=== PATIENT | female | born 2000 | race African-American/Black ===

== ENCOUNTER 2021-06-05 11:23 | Emergency (ER) | payer SELFPAY ==
[2021-06-05 11:35] VITALS: BP 117/71; PULSE 80; RESP 17; TEMP 36.4; O2SAT 99
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
[2021-06-05] MEDS: ACETAMINOPHEN 325 MG TABLET 975 MG PO (12:24)
[2021-06-05] MEDS: IBUPROFEN 400 MG TABLET 800 MG PO (12:24)
[2021-06-05] MEDS: DULOXETINE 30 MG CAPSULE 60 MG PO (12:25)
[2021-06-05] MEDS: COVID-19 VACC, Ad26(JANSSEN)/PF 0.5 ML IM (13:11)
[2021-06-05] MEDS: INFLUENZA VACCINE QIV 0.5 ML SYRINGE IM (13:12)
[2021-06-05 13:16] LABS: UR Morphine/Opiate cutoff 300 Negative (Negative); Ur Creatinine Normal (Normal); Ur Specific Gravity Normal (Normal); Urine Amphetamines Negative (Negative); Urine Barbiturates Negative (Negative); Urine Benzodiazepines Negative (Negative); Urine Cocaine Positive (Negative); Urine MDMA Negative (Negative); Urine Methadone Negative (Negative); Urine Methamphetamines Negative (Negative); Urine Oxycodone Negative (Negative); Urine Phencyclidine Negative (Negative); Urine Tetrahydrocannabinol Positive (Negative); Urine Tricyclic Antidepressant Negative (Negative); Urine pH Normal (Normal)
[2021-06-05 14:22] VITALS: BP 114/74; PULSE 69; O2SAT 100
== END 2021-06-05 14:29 | disposition home or self-care (01) ==
PROVIDERS: Emergency Provider Emergency Medicine
DX: S40.022A Contusion of left upper arm, initial encounter (principal); S40.021A Contusion of right upper arm, initial encounter; Y04.2XXA Assault by strike against or bumped into by another person, initial encounter; T74.11XA Adult physical abuse, confirmed, initial encounter; S16.1XXA Strain of muscle, fascia and tendon at neck level, initial encounter; F41.9 Anxiety disorder, unspecified; F32.9 Major depressive disorder, single episode, unspecified; Z23 Encounter for immunization
CPT/HCPCS: 0031A; 72040; 80305; 81003; 81025; 90471; 90656; 91303; 99283; 99284; Q2038

== ENCOUNTER 2023-07-26 22:39 | Emergency (ER) | payer SELFPAY ==
[2023-07-26 22:40] VITALS: BP 177/90; PULSE 122; RESP 24; TEMP 36.4; O2SAT 99
--- NOTE | 2023-07-26 22:41 | ED_ITS ---
HPI - General Adult General Stated complaint: fit for skilled nursing Time Seen by Provider: 07/26/23 22:39 History of Present Illness HPI narrative: 23-year-old presents for evaluation prior to going to skilled nursing. Patient has a laceration on her in her wrist that was unable to be fully evaluated and she is here for evaluation prior to confinement. Patient states that her last tetanus shot was 2 years ago from a cut on a different extremity. Related Data Home Medications Medication Instructions Recorded Confirmed duloxetine 60 mg capsule,delayed 60 mg PO QAM 06/05/21 06/05/21 release risperidone 2 mg tablet 1 mg PO BEDTIME 06/05/21 06/05/21 trazodone 100 mg tablet 100 mg PO BEDTIME 06/05/21 06/05/21 Allergies Allergy/AdvReac Type Severity Reaction Status Date / Time Sulfa (Sulfonamide Allergy Intermediate Verified 06/05/21 11:53 Antibiotics) Review of Systems Review of Systems Narrative: Otherwise negative Patient History Medical History (Updated 07/26/23 @ 22:42 by Charlette lA MD) Anxiety and depression Social History Smoking Status: Never smoker Smoking Status: Never smoker alcohol intake frequency: 0-2 drinks per day Substance Use Type: does not use Exam Narrative Exam Narrative: Const: Awake, alert, tearful, yelling at Law enforcement Eyes: PERRL, EOMI, conjunctiva normal Cardiac: regular rate, regular rhythm RESP: unlabored, clear bilaterally, no wheezing Skin: 1.5 cm superficial oblique laceration over in her left wrist. No exposed tendon, no active bleeding Neuro: AO x3, CN II-XII grossly intact, moves all extremities Psych: Tearful, uncooperative, not suicidal, not homicidal Course Course Course Narrative: Evaluation prior to confinement of superficial laceration on the wrist. Patient is up-to-date on her tetanus shot, laceration is superficial and does not require sutures. Patient is fit for confinement. Discharged to care of law enforcement. Medical Decision Making Differential Diagnosis Differential Diagnosis: Laceration, abrasion, wrist pain Discharge Plan Departure Patient Disposition: Home Clinical Impression: Laceration of wrist Instructions: DI for Laceration Repair Activity Restrictions/Additional Instructions: You have a superficial cut on your wrist. It does not need sutures. You may apply a Band-Aid as needed to keep the wound covered. Keep clean and dry. Please return if you notice redness or swelling. Prescriptions: No Action risperidone 2 mg tablet 1 mg PO BEDTIME Patient Comments: TAKE 1/2 TABLET EVERY NIGHT AT BEDTIME FOR 4 DAYS THEN TAKE 1 TABLET BY MOUTH EVERY NIGHT AT BEDTIME trazodone 100 mg tablet 100 mg PO BEDTIME duloxetine 60 mg capsule,delayed release(DR/EC) 60 mg PO QAM Stand Alone Forms: Patient Portal/API
== END 2023-07-26 22:50 | disposition home or self-care (01) ==
LOC: ED 22:51
PROVIDERS: Emergency Provider Emergency Medicine
DX: S61.512A Laceration without foreign body of left wrist, initial encounter (principal); X58.XXXA Exposure to other specified factors, initial encounter
CPT/HCPCS: 99282